=== PATIENT | female | born 1990 | race Caucasian/White ===

== ENCOUNTER 2017-05-03 19:16 | Emergency (ER) | payer OTHER ==
[2017-05-03 19:28] VITALS: BP 100/58
--- NOTE | 2017-05-03 20:26 | UC ---
Dental HPI - HPI Summary HPI Summary: HAD WISDOM TEETH AND RIGHT LOWER BACK MOLAR EXTRACTED 4 DAYS AGO. PAIN AND SWELLING ON LEFT LOWER SIDE SEEM TO BE GETTING WORSE. PT REPORTS THE LEFT LOWER WISDOM TOOTH WAS IMPACTED AND SUTURES WERE PLACED AFTER EXTRACTION. HAS BEEN TAKING 400MG OF IBUPROFEN ABOUT TWICE PER DAY. HAS RX FOR HYDROCODONE/APAP 7.5MG /325MG BUT HAS NOT TAKEN IT WITH ANY REGULARITY. IS TAKING AMOXICILLIN 500MG TID. IS CONCERNED THAT THE PAIN IS PERSISTENT. - History of Current Complaint Chief Complaint: UCDentalProblem Stated Complaint: TOOTH PAIN & FAINTING Time Seen by Provider: 05/03/17 19:59 Hx Obtained From: Patient Hx Last Menstrual Period: now Onset/Duration: Gradual Onset, Lasting Days, Still Present Severity: Moderate Pain Intensity: 6 Pain Scale Used: 0-10 Numeric Aggravating Factor(s): Chewing Alleviating Factor(s): Nothing Related History: Swelling - Allergies/Home Medications Allergies/Adverse Reactions: Allergies Allergy/AdvReac Type Severity Reaction Status Date / Time No Known Allergies Allergy Verified 05/03/17 19:30 Home Medications: Home Medications Amoxicillin PO (*) [Amoxicillin 500 MG CAP*] 500 mg PO TID 05/03/17 [History Confirmed 05/03/17] Hydrocodone-Acetaminophen [Hydrocodone Bitartrate/AC 7.5-325 mg] 1 tab PO Q4H PRN 05/03/17 [History Confirmed 05/03/17] Ibuprofen TAB* [Motrin TAB* 400 MG] 400 mg PO BID PRN 05/03/17 [History Confirmed 05/03/17] PMH/Surg Hx/FS Hx/Imm Hx Previously Healthy: Yes - Surgical History Surgical History: Yes Surgery Procedure, Year, and Place: wisdom teeth 04/2017 - Family History Known Family History: Negative: Hypertension - Social History Alcohol Use: Occasionally Substance Use Type: None Smoking Status (MU): Never Smoked Tobacco Review of Systems Constitutional: Negative ENT: Dental Pain Respiratory: Negative Cardiovascular: Negative Gastrointestinal: Negative All Other Systems Reviewed And Are Negative: Yes Physical Exam Triage Information Reviewed: Yes Appearance: Well-Appearing, Well-Nourished, Pain Distress - MOD Vital Signs: Initial Vital Signs Temp 99.0 F 05/03/17 19:22 Pulse 86 05/03/17 19:22 Resp 16 05/03/17 19:22 BP 100/58 05/03/17 19:22 Pulse Ox 99 05/03/17 19:22 Vital Signs Reviewed: Yes Eyes: Positive: Conjunctiva Clear ENT: Positive: Hearing grossly normal, Pharynx normal Dental: Positive: Other: - SUTURES IN PLACE. EXTRACTION SITE APPEARS TO BE HEALING APPROPRIATELY Neck: Positive: Supple, No Lymphadenopathy Respiratory: Positive: No respiratory distress, No accessory muscle use Cardiovascular: Positive: Pulses Normal Abdomen Description: Positive: Soft Musculoskeletal: Positive: No Edema Neurological: Positive: Alert Psychological: Positive: Age Appropriate Behavior Skin: Negative: rashes Dental Complaint Course/Dx - Differential Dx/Diagnosis Provider Diagnoses: POST EXTRACTION PAIN Discharge - Discharge Plan Condition: Stable Disposition: HOME Prescriptions: Chlorhexidine MW 0.12% 473ML* [Peridex Mouth Wash 0.12%*] 15 ml SWISH SPIT BID # 1 bottle Patient Education Materials: Tooth Extraction (ED) Referrals: No Primary Care Phys,NOPCP [Primary Care Provider] - Additional Instructions: NO SIGN OF INFECTION ON EXAM TODAY. BE SURE TO RINSE OUT MOUTH WITH WATER AFTER EATING ANYTHING. AVOID STRAWS. SOFT DIET. TAKE 600MG IBUPROFEN EVERY 6 HOURS AND HYDROCODONE FOR BREAKTHROUGH. CALL YOUR DENTIST FIRST THING FRIDAY MORNING IF NOT IMPROVING.
== END 2017-05-03 20:36 | disposition home or self-care (01) ==
LOC: UCEAST 19:16
DX: K08.409 Partial loss of teeth, unspecified cause, unspecified class (principal)
CPT/HCPCS: 99212; G0463